=== PATIENT | female | born 2000 | race African-American/Black ===

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

== ENCOUNTER 2018-05-12 00:10 | Inpatient (IN) | payer MEDICAID, OTHER ==
[~2018-05-12] VITALS: Ht 162.6 cm; Wt 70.3 kg
[~2018-05-12 00:10] MED LIST: FLUO-191 PO; NALT50TA PO; OLAN5TAB30 PO
[2018-05-12] MEDS ORDERED: ZOLPIDEM TARTRATE 10 MG TABLET PO PRN (03:30)
[2018-05-12] MEDS ORDERED: HALOPERIDOL 5 MG TABLET PO PRN (03:30)
[2018-05-12 03:39] LABS: AMPHET/METH SCREEN,URINE NEGATIVE (NEGATIVE); BARBITURATE SCREEN, URINE NEGATIVE (NEGATIVE); BENZODIAZEPINES SCREEN,URINE NEGATIVE (NEGATIVE); CANNABINOID SCREEN,URINE NEGATIVE (NEGATIVE); COCAINE SCREEN,URINE NEGATIVE (NEGATIVE); METHADONE SCREEN, URINE NEGATIVE (NEGATIVE); OPIATE SCREEN,URINE NEGATIVE (NEGATIVE); PHENCYCLIDINE SCREEN,URINE NEGATIVE (NEGATIVE)
[2018-05-12 04:31] LABS: BASOPHILS % (AUTO) 0.4 % (0.0-2.0); EOSINOPHILS % (AUTO) 0.4 % (1.0-6.0); HEMATOCRIT 42.8 % (36-46); HEMOGLOBIN 14.5 g/dL (12.0-16.0); LYMPHOCYTES # (AUTO) 3.1 K/uL (1.0-4.8); LYMPHOCYTES % (AUTO) 30.4 % (22.0-44.0); MEAN CORPUSCULAR HEMOGLOBIN 29.4 pg (26.0-34.0); MEAN CORPUSCULAR HGB CONC 33.9 G/dL (31.0-37.0); MEAN CORPUSCULAR VOLUME 87 fL (80-100); MONOCYTES # (AUTO) 0.6 K/uL (0.1-1.0); MONOCYTES % (AUTO) 6.1 % (2.0-9.0); NEUTROPHILS # (AUTO) 6.3 K/uL (1.8-7.7); NEUTROPHILS % (AUTO) 62.7 % (40.0-70.0); PLATELET COUNT (AUTO) 227 K/uL (150-450); RED BLOOD CELL COUNT(AUTO) 4.95 MIL/uL (4.00-5.20); RED CELL DISTRIBUTION WIDTH 13.7 % (11.5-14.5)
[2018-05-12 04:44] LABS: ANION GAP 7 mmol/L (8-16); CALCIUM, TOTAL 9.2 mg/dL (8.8-10.5); CARBON DIOXIDE 28 mmol/L (22-29); CHLORIDE 104 mmol/L (98-107); CREATININE 0.81 mg/dL (0.60-1.30); GLOMERULAR FILTR. RATE CALC > 60 mL/min (>60); GLUCOSE,RANDOM 89 mg/dL (70-110); POTASSIUM 4.4 mmol/L (3.5-5.1); SODIUM SERUM 139 mmol/L (136-145); UREA NITROGEN, BLOOD 9 mg/dL (7-18)
[2018-05-12 04:49] LABS: HEMOGLOBIN A1C 4.8 % (4.5-6.2)
[2018-05-12 04:59] LABS: ALANINE AMINOTRANSFERASE 14 U/L (12-78); ALBUMIN 4.2 g/dL (3.4-5.0); ALKALINE PHOSPHATASE 91 U/L (46-116); ASPARTATE AMINOTRANSFERASE 17 U/L (15-37); CHOL/HDL RATIO 3.1 (3.9-5.7); CHOLESTEROL 156 mg/dL (131-200); FREE T4 (FREE THYROXINE) 1.36 ng/dL (0.76-1.46); HDL CHOLESTEROL 50 mg/dL (40-60); LDL CHOL (CALC.) 94 mg/dL (0-130); THYROID STIMULATING HORMONE 1.58 uIU/mL (0.36-3.74); TOTAL PROTEIN, SERUM 7.6 g/dL (6.4-8.2); TRIGLYCERIDES 59 mg/dL (15-150)
[2018-05-12 10:04] VITALS: BP 101/50
[2018-05-12] MEDS: LORazepam 2 MG TABLET PO PRN (10:18)
[2018-05-12] MEDS ORDERED: OLANZapine 5 MG RAPDIS TABLET PO PRN (13:30)
[2018-05-12] MEDS ORDERED: TUBERCULIN, PURIFIED PROTEIN DERIVATIVE 5 TU/0.1 ML SYG ID ONE (13:30)
[2018-05-12] MEDS ORDERED: MAGNESIUM HYDROXIDE SUSPENSION 30 ML UDCUP PO PRN (13:30)
[2018-05-12] MEDS ORDERED: PROMETHAZINE HCL 25 MG TABLET PO PRN (13:30)
[2018-05-12] MEDS ORDERED: GuaiFENesin/D-METHORPHAN [SUGAR-FREE] 200-20MG/10 ML SYRUP UDCUP PO PRN (13:30)
[2018-05-12] MEDS ORDERED: MAG HYDROX/AL HYDROX/SIMETH ES 30 ML SUSPENSION UDCUP PO PRN (13:30)
[2018-05-12] MEDS ORDERED: HydrOXYzine PAMOATE 50 MG CAPSULE PO PRN (13:30)
[2018-05-12] MEDS ORDERED: ACETAMINOPHEN 325 MG TABLET PO PRN (13:30)
[2018-05-12] MEDS ORDERED: LOPERAMIDE HCL 2 MG CAPSULE PO PRN (13:30)
[2018-05-12] MEDS ORDERED: ALBUTEROL SULFATE HFA 90 MCG/PUFF 8 GM INHALER IH PRN (14:30)
[2018-05-12] MEDS ORDERED: PETROLATUM,WHITE 71 GM JELLY TP PRN (14:30)
[2018-05-12] MEDS ORDERED: DOCUSATE SODIUM 100 MG CAPSULE PO PRN (14:30)
[2018-05-12] MEDS ORDERED: IBUPROFEN 400 MG TABLET PO PRN (14:30)
[2018-05-12] MEDS ORDERED: ONDANSETRON HCL 4 MG TABLET PO PRN (14:30)
[2018-05-12] MEDS ORDERED: CloNIDine HCL 0.1 MG TABLET PO PRN (14:30)
[2018-05-12] MEDS ORDERED: NICOTINE 14 MG/24 HOUR PATCH TD PRN (14:30)
[2018-05-12] MEDS ORDERED: OLANZapine 5 MG RAPDIS TABLET PO SCH (21:00)
[2018-05-12] MEDS: THIAMINE HCL 100 MG TABLET PO SCH (21:25)
[2018-05-13 07:05] VITALS: BP 100/60
[2018-05-13 08:45] LABS: BASOPHILS % (AUTO) 0.4 % (0.0-2.0); EOSINOPHILS % (AUTO) 1.8 % (1.0-6.0); HEMATOCRIT 42.7 % (36-46); HEMOGLOBIN 14.4 g/dL (12.0-16.0); LYMPHOCYTES # (AUTO) 3.4 K/uL (1.0-4.8); LYMPHOCYTES % (AUTO) 47.5 % (22.0-44.0); MEAN CORPUSCULAR HEMOGLOBIN 29.1 pg (26.0-34.0); MEAN CORPUSCULAR HGB CONC 33.7 G/dL (31.0-37.0); MEAN CORPUSCULAR VOLUME 86 fL (80-100); MONOCYTES # (AUTO) 0.5 K/uL (0.1-1.0); MONOCYTES % (AUTO) 6.6 % (2.0-9.0); NEUTROPHILS # (AUTO) 3.1 K/uL (1.8-7.7); NEUTROPHILS % (AUTO) 43.7 % (40.0-70.0); PLATELET COUNT (AUTO) 214 K/uL (150-450); RED BLOOD CELL COUNT(AUTO) 4.95 MIL/uL (4.00-5.20); RED CELL DISTRIBUTION WIDTH 13.5 % (11.5-14.5)
[2018-05-13 09:03] LABS: HEMOGLOBIN A1C 4.9 % (4.5-6.2)
[2018-05-13] MEDS: THIAMINE HCL 100 MG TABLET PO SCH ×2 (09:40→17:19)
[2018-05-13] MEDS: MULTIVITAMINS WITH MINERALS, THERAPEUTIC TABLET PO SCH (09:40)
[2018-05-13] MEDS: FLUoxetine HCL 20 MG CAPSULE PO SCH (09:40)
[2018-05-13] MEDS: FOLIC ACID 1 MG TABLET PO SCH (09:40)
[2018-05-13] MEDS: NALTREXONE HCL 50 MG TABLET PO SCH (09:40)
[2018-05-13 09:45] LABS: ALANINE AMINOTRANSFERASE 13 U/L (12-78); ALBUMIN 3.7 g/dL (3.4-5.0); ALKALINE PHOSPHATASE 85 U/L (46-116); ANION GAP 8 mmol/L (8-16); ASPARTATE AMINOTRANSFERASE 14 U/L (15-37); BILIRUBIN,TOTAL 0.9 mg/dL (0.1-1.0); CALCIUM, TOTAL 8.7 mg/dL (8.8-10.5); CARBON DIOXIDE 28 mmol/L (22-29); CHLORIDE 106 mmol/L (98-107); CHOL/HDL RATIO 3.5 (3.9-5.7); CHOLESTEROL 150 mg/dL (131-200); CREATININE 0.81 mg/dL (0.60-1.30); GLOMERULAR FILTR. RATE CALC > 60 mL/min (>60); GLUCOSE,RANDOM 73 mg/dL (70-110); HDL CHOLESTEROL 43 mg/dL (40-60); LDL CHOL (CALC.) 94 mg/dL (0-130); POTASSIUM 3.7 mmol/L (3.5-5.1); SODIUM SERUM 142 mmol/L (136-145); THYROID STIMULATING HORMONE 0.72 uIU/mL (0.36-3.74); TOTAL PROTEIN, SERUM 6.9 g/dL (6.4-8.2); TRIGLYCERIDES 66 mg/dL (15-150); UREA NITROGEN, BLOOD 11 mg/dL (7-18)
[2018-05-13 17:31] VITALS: BP 110/63
[2018-05-13] MEDS: OLANZapine 10 MG RAPDIS TABLET PO SCH (21:09)
[2018-05-14 07:26] VITALS: BP 100/61
[2018-05-14 08:32] VITALS: BP 105/54
[2018-05-14] MEDS: MULTIVITAMINS WITH MINERALS, THERAPEUTIC TABLET PO SCH (09:31)
[2018-05-14] MEDS: FLUoxetine HCL 20 MG CAPSULE PO SCH (09:31)
[2018-05-14] MEDS: THIAMINE HCL 100 MG TABLET PO SCH ×2 (09:31→16:28)
[2018-05-14] MEDS: NALTREXONE HCL 50 MG TABLET PO SCH (09:31)
[2018-05-14] MEDS: FOLIC ACID 1 MG TABLET PO SCH (09:31)
[2018-05-14 17:36] VITALS: BP 100/60
[2018-05-14] MEDS: OLANZapine 10 MG RAPDIS TABLET PO SCH (20:18)
[2018-05-15 03:13] VITALS: BP 112/66
[2018-05-15 08:21] VITALS: BP 105/58
[2018-05-15] MEDS: MULTIVITAMINS WITH MINERALS, THERAPEUTIC TABLET PO SCH (08:50)
[2018-05-15] MEDS: NALTREXONE HCL 50 MG TABLET PO SCH (08:50)
[2018-05-15] MEDS: FLUoxetine HCL 20 MG CAPSULE PO SCH (08:50)
[2018-05-15] MEDS: THIAMINE HCL 100 MG TABLET PO SCH ×2 (08:50→16:06)
[2018-05-15] MEDS: FOLIC ACID 1 MG TABLET PO SCH (08:50)
[2018-05-15 19:52] VITALS: BP 108/66
[2018-05-15] MEDS: OLANZapine 10 MG RAPDIS TABLET PO SCH (20:03)
[2018-05-16 06:54] VITALS: BP 107/65
[2018-05-16] MEDS: NALTREXONE HCL 50 MG TABLET PO SCH (08:39)
[2018-05-16] MEDS: THIAMINE HCL 100 MG TABLET PO SCH ×2 (08:39→16:08)
[2018-05-16] MEDS: MULTIVITAMINS WITH MINERALS, THERAPEUTIC TABLET PO SCH (08:39)
[2018-05-16] MEDS: FLUoxetine HCL 20 MG CAPSULE PO SCH (08:39)
[2018-05-16] MEDS: FOLIC ACID 1 MG TABLET PO SCH (08:39)
[2018-05-16 09:06] VITALS: BP 110/74
[2018-05-16 16:12] VITALS: BP 110/65
[2018-05-16] MEDS: OLANZapine 10 MG RAPDIS TABLET PO SCH (20:40)
[2018-05-17 06:50] VITALS: BP 107/65
[2018-05-17 08:37] VITALS: BP 112/66
[2018-05-17] MEDS: MULTIVITAMINS WITH MINERALS, THERAPEUTIC TABLET PO SCH (08:58)
[2018-05-17] MEDS: THIAMINE HCL 100 MG TABLET PO SCH ×2 (08:58→16:12)
[2018-05-17] MEDS: NALTREXONE HCL 50 MG TABLET PO SCH (08:58)
[2018-05-17] MEDS: FLUoxetine HCL 20 MG CAPSULE PO SCH (08:58)
[2018-05-17] MEDS: FOLIC ACID 1 MG TABLET PO SCH (08:58)
[2018-05-17 16:29] VITALS: BP 133/77
[2018-05-17] MEDS: OLANZapine 10 MG RAPDIS TABLET PO SCH (20:33)
[2018-05-18 06:20] VITALS: BP 118/66
[2018-05-18 08:20] VITALS: BP 117/40
[2018-05-18] MEDS: NALTREXONE HCL 50 MG TABLET PO SCH (08:37)
[2018-05-18] MEDS: THIAMINE HCL 100 MG TABLET PO SCH ×2 (08:37→15:59)
[2018-05-18] MEDS: FLUoxetine HCL 20 MG CAPSULE PO SCH (08:37)
[2018-05-18] MEDS: MULTIVITAMINS WITH MINERALS, THERAPEUTIC TABLET PO SCH (08:37)
[2018-05-18] MEDS: FOLIC ACID 1 MG TABLET PO SCH (08:37)
[2018-05-18 16:12] VITALS: BP 112/69
[2018-05-18] MEDS: OLANZapine 10 MG RAPDIS TABLET PO SCH (20:38)
[2018-05-19 08:15] VITALS: BP 129/92
[2018-05-19] MEDS: THIAMINE HCL 100 MG TABLET PO SCH ×2 (08:32→17:48)
[2018-05-19] MEDS: MULTIVITAMINS WITH MINERALS, THERAPEUTIC TABLET PO SCH (08:32)
[2018-05-19] MEDS: FOLIC ACID 1 MG TABLET PO SCH (08:32)
[2018-05-19] MEDS: NALTREXONE HCL 50 MG TABLET PO SCH (08:32)
[2018-05-19] MEDS: FLUoxetine HCL 20 MG CAPSULE PO SCH (08:32)
[2018-05-19 16:43] VITALS: BP 120/65
[2018-05-19] MEDS: LORazepam 2 MG TABLET PO PRN (17:48)
[2018-05-19] MEDS: OLANZapine 10 MG RAPDIS TABLET PO SCH (21:18)
[2018-05-20 06:32] VITALS: BP 116/60
[2018-05-20 08:12] VITALS: BP 120/75
[2018-05-20] MEDS: FOLIC ACID 1 MG TABLET PO SCH (09:01)
[2018-05-20] MEDS: NALTREXONE HCL 50 MG TABLET PO SCH (09:01)
[2018-05-20] MEDS: MULTIVITAMINS WITH MINERALS, THERAPEUTIC TABLET PO SCH (09:01)
[2018-05-20] MEDS: THIAMINE HCL 100 MG TABLET PO SCH (09:01)
[2018-05-20] MEDS: FLUoxetine HCL 20 MG CAPSULE PO SCH (09:04)
[2018-05-20] MEDS ORDERED: FLUO-191 PO (16:03)
[2018-05-20] MEDS ORDERED: OLAN10TA22 PO (16:03)
[2018-05-20] MEDS ORDERED: NALT50TA PO (16:03)
[2018-05-20 17:38] VITALS: BP 121/70
== END 2018-05-20 17:10 | disposition home or self-care (01) | DRG 750 ==
LOC: EMS 00:10 → AHU 09:20 → B3A 16:34
PROVIDERS: ADMIT Psychiatry & Neurology Psychiatry; ATTEND Psychiatry & Neurology Psychiatry
DX: F25.9 Schizoaffective disorder, unspecified (principal); I95.9 Hypotension, unspecified; R45.851 Suicidal ideations; Z59.0 Homelessness; Z91.19 Patient's noncompliance with other medical treatment and regimen; G47.00 Insomnia, unspecified; F12.90 Cannabis use, unspecified, uncomplicated; F41.9 Anxiety disorder, unspecified; F19.10 Other psychoactive substance abuse, uncomplicated; Z71.51 Drug abuse counseling and surveillance of drug abuser
CPT/HCPCS: 83036; 84439; 84443; 99285; G0480

== ENCOUNTER 2018-10-24 19:42 | Emergency (ER) | payer MEDICAID, OTHER ==
[~2018-10-24] VITALS: Ht 165.1 cm; Wt 68.2 kg
[~2018-10-24 19:42] MED LIST changes: +OLAN10TA22 PO; -OLAN5TAB30 PO
[2018-10-24] MEDS ORDERED: HALOPERIDOL 5 MG TABLET PO ONE (20:30)
[2018-10-24] MEDS ORDERED: DiphenhydrAMINE HCL 25 MG CAPSULE PO ONE (20:30)
[2018-10-24] MEDS ORDERED: LORazepam 2 MG TABLET PO ONE (20:30)
[2018-10-24 21:00] LABS: BASOPHILS % (AUTO) 0.4 % (0.0-2.0); EOSINOPHILS % (AUTO) 1.5 % (1.0-6.0); HEMATOCRIT 43.3 % (36-46); HEMOGLOBIN 14.4 g/dL (12.0-16.0); LYMPHOCYTES # (AUTO) 3.5 K/uL (1.0-4.8); LYMPHOCYTES % (AUTO) 30.1 % (22.0-44.0); MEAN CORPUSCULAR HEMOGLOBIN 28.4 pg (26.0-34.0); MEAN CORPUSCULAR HGB CONC 33.3 G/dL (31.0-37.0); MEAN CORPUSCULAR VOLUME 85 fL (80-100); MONOCYTES # (AUTO) 0.9 K/uL (0.1-1.0); MONOCYTES % (AUTO) 7.5 % (2.0-9.0); NEUTROPHILS # (AUTO) 7.1 K/uL (1.8-7.7); NEUTROPHILS % (AUTO) 60.5 % (40.0-70.0); PLATELET COUNT (AUTO) 294 K/uL (150-450); RED BLOOD CELL COUNT(AUTO) 5.08 MIL/uL (4.00-5.20); RED CELL DISTRIBUTION WIDTH 14.2 % (11.5-14.5)
[2018-10-24 21:08] LABS: ANION GAP 13 mmol/L (8-16); CALCIUM, TOTAL 9.3 mg/dL (8.8-10.5); CARBON DIOXIDE 24 mmol/L (22-29); CHLORIDE 100 mmol/L (98-107); CREATININE 0.85 mg/dL (0.60-1.30); GLOMERULAR FILTR. RATE CALC > 60 mL/min (>60); GLUCOSE,RANDOM 73 mg/dL (70-110); POTASSIUM 3.2 mmol/L (3.5-5.1); SODIUM SERUM 137 mmol/L (136-145); UREA NITROGEN, BLOOD 10 mg/dL (7-18)
[2018-10-24 21:30] LABS: ALANINE AMINOTRANSFERASE 32 U/L (12-78); ALBUMIN 4.5 g/dL (3.4-5.0); ALKALINE PHOSPHATASE 94 U/L (46-116); ASPARTATE AMINOTRANSFERASE 60 U/L (15-37); BILIRUBIN,TOTAL 1.3 mg/dL (0.1-1.0); HCG,QUANTITATIVE < 1 mIU/mL (0-6); TOTAL PROTEIN, SERUM 7.7 g/dL (6.4-8.2)
[2018-10-24] MEDS ORDERED: DiphenhydrAMINE HCL 50 MG/ML VIAL IM ONE (22:30)
[2018-10-24] MEDS ORDERED: HALOPERIDOL LACTATE 5 MG/ML VIAL IM ONE (22:30)
[2018-10-24] MEDS ORDERED: LORazepam 2 MG/ML VIAL IM ONE (22:30)
[2018-10-25 02:25] VITALS: BP 112/72
== END 2018-10-25 02:42 | disposition home or self-care (01) ==
LOC: EMS 19:44
DX: F41.9 Anxiety disorder, unspecified (principal); F15.10 Other stimulant abuse, uncomplicated; F12.90 Cannabis use, unspecified, uncomplicated
CPT/HCPCS: 36415; 80053; 84702; 85025; 99284; G0480

== ENCOUNTER 2019-02-01 18:06 | Emergency (ER) | payer MEDICAID, OTHER ==
[~2019-02-01] VITALS: Ht 160 cm; Wt 61.4 kg
[2019-02-01 18:49] LABS: BASOPHILS % (AUTO) 0.4 % (0.0-2.0); EOSINOPHILS % (AUTO) 0.6 % (1.0-6.0); HEMATOCRIT 43.1 % (36-46); HEMOGLOBIN 14.2 g/dL (12.0-16.0); LYMPHOCYTES # (AUTO) 2.7 K/uL (1.0-4.8); LYMPHOCYTES % (AUTO) 25.8 % (22.0-44.0); MEAN CORPUSCULAR VOLUME 88 fL (80-100); MONOCYTES # (AUTO) 0.7 K/uL (0.1-1.0); NEUTROPHILS # (AUTO) 6.8 K/uL (1.8-7.7); NEUTROPHILS % (AUTO) 66.2 % (40.0-70.0); PLATELET COUNT (AUTO) 235 K/uL (150-450); RED CELL DISTRIBUTION WIDTH 13.5 % (11.5-14.5)
[2019-02-01 19:06] LABS: ANION GAP 7 mmol/L (8-16); CARBON DIOXIDE 29 mmol/L (22-29); CHLORIDE 104 mmol/L (98-107); GLOMERULAR FILTR. RATE CALC > 60 mL/min (>60); GLUCOSE,RANDOM 99 mg/dL (70-110); POTASSIUM 3.9 mmol/L (3.5-5.1); SODIUM SERUM 140 mmol/L (136-145); UREA NITROGEN, BLOOD 9 mg/dL (7-18)
[2019-02-01 19:18] LABS: ALANINE AMINOTRANSFERASE 12 U/L (12-78); ALBUMIN 4.1 g/dL (3.4-5.0); ALKALINE PHOSPHATASE 100 U/L (46-116); ASPARTATE AMINOTRANSFERASE 15 U/L (15-37); BILIRUBIN,TOTAL 0.6 mg/dL (0.1-1.0); HCG,QUANTITATIVE < 1 mIU/mL (0-6); LIPASE 80 U/L (73-393); TOTAL PROTEIN, SERUM 7.5 g/dL (6.4-8.2)
[2019-02-01] MEDS ORDERED: ACETAMINOPHEN 325 MG TABLET PO ONE (21:30)
[2019-02-01] MEDS ORDERED: HydrOXYzine HCL 25 MG TABLET PO ONE (21:30)
[2019-02-01 22:35] VITALS: BP 132/84
== END 2019-02-01 22:46 | disposition home or self-care (01) ==
LOC: EMS 18:06
DX: R10.84 Generalized abdominal pain (principal); F12.90 Cannabis use, unspecified, uncomplicated
CPT/HCPCS: 76700